=== PATIENT | female | born 1945 | race Caucasian/White ===

== ENCOUNTER 2018-07-09 08:17 | Outpatient (CLI) | payer MEDICARE | END 2018-07-09 08:18 | disposition home or self-care (01) | LOC: BICMAMMO 08:17 | PROVIDERS: ATTEND Family Medicine | DX: Z12.31 Encounter for screening mammogram for malignant neoplasm of breast (principal); M81.0 Age-related osteoporosis without current pathological fracture; M85.851 Other specified disorders of bone density and structure, right thigh | CPT/HCPCS: 77063; 77067; 77080 ==

== ENCOUNTER 2018-08-18 13:30 | Outpatient (CLI) | payer MEDICARE ==
--- NOTE | 2018-08-18 14:56 | RAD ---
CHEST PA AND LATERAL 2 VIEWS: Date: 08/18/18 HISTORY: 72-year-old female with dyspnea. COMPARISON: 11/26/16. FINDINGS: Dorsal column stimulator leads overlie the mid thoracic spine. Heart size is within normal limits. Jazmin ngs are clear. No pneumonia, edema, or pleural effusion. IMPRESSION: No acute intrathoracic disease. Stable from prior study. POS: OFF
== END 2018-08-18 13:31 | disposition home or self-care (01) ==
LOC: RAD 13:30
PROVIDERS: ATTEND Internal Medicine
DX: R06.00 Dyspnea, unspecified (principal)
CPT/HCPCS: 71046

== ENCOUNTER 2018-10-07 13:23 | Outpatient (CLI) | payer MEDICARE | END 2018-10-07 13:24 | disposition home or self-care (01) | LOC: CP 13:23 | PROVIDERS: ATTEND Internal Medicine | DX: J44.9 Chronic obstructive pulmonary disease, unspecified (principal); G47.33 Obstructive sleep apnea (adult) (pediatric) | CPT/HCPCS: 94060; 94727; 94729 ==

== ENCOUNTER 2019-03-01 14:14 | Emergency (ER) | payer MEDICARE ==
[2019-03-01 15:56] LABS: #Eosinphils 0.1 thou/uL (0.0-0.7); #Lymphocytes 2.1 thou/uL (1.20-3.40); #Monocytes 0.4 thou/uL (0.11-0.59); #Neutrophils 4.4 thou/uL (1.40-6.50); %Basophils 0.6 % (0.0-1.0); %Eosinophils 1.6 % (0.0-10.0); %Lymphocytes 29.3 % (21.0-51.0); %Neutrophils 62.5 % (42.0-75.0); Hemoglobin 11.5 g/dL (12.0-16.0); Mean Corpuscular HGB CONC 33.6 g/dL (32.0-36.0); Mean Corpuscular Hemoglobin 31.8 pg (27.0-31.0); Mean Corpuscular Volume 94.8 fL (78.0-98.0); Mean Platelet Volume 8.9 fL (7.4-10.4); Platelet Count 229 thou/uL (130-400); RBC Distribution Width 11.6 % (11.5-14.5); Red Blood Cell (RBC) Count 3.61 mill/uL (4.20-5.40)
[2019-03-01 16:17] LABS: ALT (SGPT) 20 U/L (8-55); AST (SGOT) 22 U/L (5-34); Albumin 4.1 g/dL (3.4-4.8); Alkaline Phosphatase 148 U/L (40-150); Anion Gap 14 mmol/L (10-20); BUN (Urea Nitrogen) 7 mg/dL (9.8-20.1); Bilirubin, Total 0.6 mg/dL (0.2-1.2); CK (CPK) 68 U/L (29-168); Calc. Creatinine Clearance 0 mL/min (70-130); Calcium 10.1 mg/dL (7.8-10.44); Carbon Dioxide 25 mmol/L (23-31); Chloride 106 mmol/L (98-107); Estimated GFR-MDRD 76; Globulin 3.1 g/dL (2.4-3.5); Glucose 105 mg/dL (83-110); Lipase 26 U/L (8-78); Potassium 3.9 mmol/L (3.5-5.1); Protein, Total 7.2 g/dL (6.0-8.3); Sodium 141 mmol/L (136-145)
--- NOTE | 2019-03-01 17:47 | CT ---
CT of abdomen and pelvis: 03/01/2019 COMPARISON: None available HISTORY: Abdominal pain TECHNIQUE: Axial CT imaging through abdomen and pelvis with oral contrast and coronal reformatted vijaya ging FINDINGS: Lack of IV contrast limits assessment of the viscera, vascular structures, and for lymphade nopathy. Imaged lung bases unremarkable. No free intraperitoneal air or fluid. Cholecystectomy clips are noted. Liver, spleen, pancreas, adrenal glands, and kidneys demonstrate no acute findings. There is scattere d atherosclerotic calcification of the abdominal aorta. The uterus appears surgically absent. There is sigmoid diverticulosis. There is a focal area of sigmoid colonic wall thickening within the central aspect of the lower pelvis with pericolonic fat stranding, most consistent with acute sigmoid colonic diverticulitis. No associated abscess formation. No extraluminal gas or associated ob struction. There is a fat-containing umbilical hernia, the hernia sac measuring 5.7 cm craniocaudal dimension an d 6.1 cm transverse dimension. Appendix appears grossly unremarkable. Question prior Campbell fundoplication. Dorsal column stimulators are present, terminating over the mid thoracic spine. Lower lumbar spine fa cet hypertrophic change noted. No worrisome lytic or blastic bone lesions. IMPRESSION: Evidence of sigmoid diverticulitis. Follow-up direct visualization following treatment wesly cha.
[2019-03-01] MEDS ORDERED: metroNIDAZOLE 500 MG/100 ML BAG ONE (18:46)
[2019-03-01 20:06] LABS: Bilirubin Negative (Negative); Blood, Urine Negative (Negative); Clarity CLEAR (Clear); Glucose, Urine (Dipstick) Negative (Negative); Leukocyte Negative (Negative); Nitrite Negative (Negative); Protein, Urine (Dipstick) Negative (Neg-Trace); Specific Gravity, Urine 1.003 (1.002-1.036); Urobilinogen 0.2 mg/dL (0.2-1.0)
== END 2019-03-01 21:15 | disposition home or self-care (01) ==
LOC: ERS 14:14
DX: K57.32 Diverticulitis of large intestine without perforation or abscess without bleeding (principal); E78.5 Hyperlipidemia, unspecified; I10 Essential (primary) hypertension; J45.909 Unspecified asthma, uncomplicated; Z79.899 Other long term (current) drug therapy
CPT/HCPCS: 36415; 74176; 80053; 81003; 82550; 83605; 83690; 85025; 96365; 96367; J0690

== ENCOUNTER 2019-07-19 08:50 | Outpatient (CLI) | payer MEDICARE ==
--- NOTE | 2019-07-19 10:24 | MMO ---
Bilateral MAMMO Bilat Screen [facility]. CLINICAL HISTORY: Patient is 73 years old and is seen for screening. The patient has no family history of breast cancer. The patient has no personal history of cancer. VIEWS: The views performed were: bilateral craniocaudal with tomosynthesis and bilateral mediolateral oblique with tomosynthesis. FILMS COMPARED: The present examination has been compared to prior imaging studies performed at [facility] on 08/28/2015, 07/08/2017 and 07/09/2018, and at [facility] on 02/15/2015. MAMMOGRAM FINDINGS: There are scattered fibroglandular densities. There are benign appearing calcifications seen in both breasts. There are no suspicious masses, suspicious calcifications, or new areas of architectural distortion. IMPRESSION: THERE IS NO MAMMOGRAPHIC EVIDENCE OF MALIGNANCY. A ROUTINE FOLLOW-UP MAMMOGRAM IN 1 YEAR IS RECOMMENDED. THE RESULTS OF THIS EXAM WERE SENT TO THE PATIENT. ACR BI-RADS Category 2 - Benign finding MAMMOGRAPHY NOTE: 1. A negative mammogram report should not delay a biopsy if a dominant of clinically suspicious mass is present. 2. Approximately 10% to 15% of breast cancers are not detected by mammography. 3. Adenosis and dense breasts may obscure an underlying neoplasm. Reported by: TC ACOSTA MD Electonically Signed: [id number]
== END 2019-07-19 08:51 | disposition home or self-care (01) ==
LOC: BICMAMMO 08:50
PROVIDERS: ATTEND Family Medicine
DX: Z12.31 Encounter for screening mammogram for malignant neoplasm of breast (principal)
CPT/HCPCS: 77063; 77067

== ENCOUNTER 2019-12-23 15:14 | Emergency (ER) | payer MEDICARE ==
--- NOTE | 2019-12-23 16:12 | RAD ---
THREE VIEWS OF THE RIGHT WRIST: 12/23/19 COMPARISON: None. HISTORY: Right hand and wrist injury with pain. FINDINGS: Three views of the right wrist shows no evidence of fracture or dislocation surrounding the wrist. Th ere appears to be a fracture of the fifth metacarpal. Soft tissue swelling is seen along the dorsal a spect of the hand. No soft tissue swelling is seen surrounding the wrist. IMPRESSION: 1. No evidence of acute osseous abnormality of the wrist. 2. Fifth metacarpal fracture. POS: [facility]
[2019-12-23] MEDS ORDERED: Acetaminophen 500 MG TAB ONE (16:21)
--- NOTE | 2019-12-23 16:30 | RAD ---
RIGHT HAND: 12/23/19 Three views. HISTORY: Right hand injury. Carpals appear normally aligned and appear intact. Mild degenerative changes at the intercarpal and c arpometacarpal joints. Cystic changes seen in the proximal scaphoid. The metacarpals and phalanges appear intact. Mild DJD seen at the MCP and IP joints. Hypertrophic kemi nges seen along the distal cortex of the dorsal aspect of the fifth metacarpal involving the neck of the fifth metacarpal. This appears to represent hypertrophic change. A subtle fracture at this site i s not completely excluded. Recommend clinical correlation regarding pain in the region of the head of the fifth metacarpal. No other evidence of acute fracture. IMPRESSION: 1. Irregular density along the cortical margin of the neck of the fifth metacarpal dorsally is f elt to represent hypertrophic change. A subtle fracture is not excluded and recommend clinical correl ation. 2. Otherwise degenerative changes of the hand as noted above. POS: [facility]
== END 2019-12-23 16:23 | disposition home or self-care (01) ==
LOC: ERS 15:14
DX: S62.336A Displaced fracture of neck of fifth metacarpal bone, right hand, initial encounter for closed fracture (principal); E78.5 Hyperlipidemia, unspecified; I10 Essential (primary) hypertension; J45.909 Unspecified asthma, uncomplicated; Z79.899 Other long term (current) drug therapy; W18.30XA Fall on same level, unspecified, initial encounter

== ENCOUNTER 2020-07-21 08:00 | Outpatient (CLI) | payer MEDICARE ==
--- NOTE | 2020-07-21 08:35 | MMO ---
Bilateral MAMMO Bilat Screen [facility]. CLINICAL HISTORY: Patient is 74 years old and is seen for screening. The patient has no family history of breast cancer. The patient has no personal history of cancer. VIEWS: The views performed were: bilateral craniocaudal with tomosynthesis and bilateral mediolateral oblique with tomosynthesis. FILMS COMPARED: The present examination has been compared to prior imaging studies performed at [facility] on 08/28/2015, 07/08/2017, 07/09/2018 and 07/19/2019. This study has been interpreted with the assistance of computer-aided detection. MAMMOGRAM FINDINGS: There are scattered fibroglandular densities. There are stable benign appearing calcifications seen in both breasts. There are also vascular calcifications. There are no suspicious masses, suspicious calcifications, or new areas of architectural distortion. IMPRESSION: THERE IS NO MAMMOGRAPHIC EVIDENCE OF MALIGNANCY. A ROUTINE FOLLOW-UP MAMMOGRAM IN 1 YEAR IS RECOMMENDED. THE RESULTS OF THIS EXAM WERE SENT TO THE PATIENT. ACR BI-RADS Category 2 - Benign finding MAMMOGRAPHY NOTE: 1. A negative mammogram report should not delay a biopsy if a dominant of clinically suspicious mass is present. 2. Approximately 10% to 15% of breast cancers are not detected by mammography. 3. Adenosis and dense breasts may obscure an underlying neoplasm. Reported by: SHERMAN DELGADO MD Electonically Signed: [id number]
--- NOTE | 2020-07-24 10:16 | BD ---
BONE DENSITOMETRY: Date: 07/24/2020 HISTORY: Postmenopausal screening. FINDINGS: BMD (g/cm2) Left Femoral Neck: 0.723 T-Score: -1.1 Total: 0.907 T-Score: -0.3 Right Femoral Neck 0.730 T-Score: -1.1 Total: 0.899 T-Score: -0.4 IMPRESSION: Bone mineral density of both femoral necks indicates osteopenia. 10 YEAR FRACTURE RISK: Major osteoporotic fracture: 9.5% Hip fracture: 1.5% POS: [facility]
== END 2020-07-21 08:01 | disposition home or self-care (01) ==
LOC: BICMAMMO 08:00
PROVIDERS: ATTEND Obstetrics & Gynecology
DX: Z12.31 Encounter for screening mammogram for malignant neoplasm of breast (principal)
CPT/HCPCS: 77063; 77067

== ENCOUNTER 2020-07-24 09:30 | Outpatient (CLI) | payer MEDICARE | END 2020-07-24 09:31 | disposition home or self-care (01) | LOC: BICMAMMO 09:30 | PROVIDERS: ATTEND Obstetrics & Gynecology | DX: Z13.820 Encounter for screening for osteoporosis (principal); M85.851 Other specified disorders of bone density and structure, right thigh; M85.852 Other specified disorders of bone density and structure, left thigh | CPT/HCPCS: 77080 ==

== ENCOUNTER 2021-10-17 14:23 | Outpatient (CLI) | payer MEDICARE | END 2021-10-17 14:24 | disposition home or self-care (01) | LOC: BICMAMMO 14:23 | PROVIDERS: ATTEND Obstetrics & Gynecology | DX: Z12.31 Encounter for screening mammogram for malignant neoplasm of breast (principal) | CPT/HCPCS: 77063; 77067 ==

== ENCOUNTER 2022-03-27 10:19 | Emergency (ER) | payer MEDICARE ==
[2022-03-27] MEDS ORDERED: Morphine 4 MG/ML VIAL ONE (11:49)
== END 2022-03-27 14:44 | disposition home or self-care (01) ==
LOC: ERS 10:19
DX: S52.615A Nondisplaced fracture of left ulna styloid process, initial encounter for closed fracture (principal); S52.502A Unspecified fracture of the lower end of left radius, initial encounter for closed fracture; M25.562 Pain in left knee; M25.572 Pain in left ankle and joints of left foot; I10 Essential (primary) hypertension; E78.5 Hyperlipidemia, unspecified; W18.30XA Fall on same level, unspecified, initial encounter; Y93.K1 Activity, walking an animal
CPT/HCPCS: 29125; 71045; 72170; 96372; J2270

== ENCOUNTER 2022-04-02 10:55 | Outpatient (CLI) | payer MEDICARE ==
[2022-04-03 00:19] LABS: SARS-CoV-2 PCR by NAA Not Detected (NotDetected)
== END 2022-04-02 10:56 | disposition home or self-care (01) ==
LOC: LABBT 10:55
PROVIDERS: ATTEND Orthopaedic Surgery
DX: Z01.818 Encounter for other preprocedural examination (principal); S52.502A Unspecified fracture of the lower end of left radius, initial encounter for closed fracture; Z20.822 Contact with and (suspected) exposure to COVID-19
CPT/HCPCS: 93005; U0003; U0005; 93010

== ENCOUNTER 2022-04-04 11:39 | Day surgery (SDC) | payer MEDICARE ==
[2022-04-03 12:21] VITALS: BMI 27.6
[2022-04-04] MEDS ORDERED: fentaNYL Citrate/PF 100 MCG/2 ML SYRINGE ONE (13:54)
[2022-04-04 14:26] LABS: Chloride 108 mmol/L (98-107)
[2022-04-04 14:27] LABS: Calcium 9.7 mg/dL (7.8-10.44); Glucose 88 mg/dL (83-110); Potassium 4.2 mmol/L (3.5-5.1); Sodium 140 mmol/L (136-145)
[2022-04-04 14:29] LABS: Anion Gap 16 mmol/L (10-20); Carbon Dioxide 20 mmol/L (23-31)
[2022-04-04 14:31] LABS: Calc. Creatinine Clearance 77 mL/min (70-130)
[2022-04-04 14:32] LABS: BUN (Urea Nitrogen) 9 mg/dL (9.8-20.1)
[2022-04-04] MEDS ORDERED: CEFAZOLIN 2 GM VIAL ONE (14:59)
[2022-04-04] MEDS ORDERED: Sodium Chloride 0.9% 100 ML ONE (14:59)
[2022-04-04] MEDS ORDERED: EPINEPHrine 1 MG/ML AMP ONE (15:54)
[2022-04-04] MEDS ORDERED: Bupivacaine PF 0.5% 30 ML VIAL ONE (15:54)
[2022-04-04] MEDS ORDERED: Promethazine HCl 25 MG/ML VIAL ONE (16:32)
[2022-04-04] MEDS ORDERED: HYDROcodone/Acetaminophen 5/325 mg Tablet ONE (17:17)
== END 2022-04-04 18:22 | disposition home or self-care (01) ==
LOC: SDC 11:39
PROVIDERS: ATTEND Orthopaedic Surgery
PROC: 0PSJ04Z Reposition Left Radius with Internal Fixation Device, Open Approach (ICD-10-PCS; principal; 2022-04-04)
DX: S52.532A Colles' fracture of left radius, initial encounter for closed fracture (principal); J44.9 Chronic obstructive pulmonary disease, unspecified; I10 Essential (primary) hypertension; K21.9 Gastro-esophageal reflux disease without esophagitis; M81.0 Age-related osteoporosis without current pathological fracture; Z79.899 Other long term (current) drug therapy; Z88.1 Allergy status to other antibiotic agents; Z88.2 Allergy status to sulfonamides; Z88.5 Allergy status to narcotic agent; Z88.8 Allergy status to other drugs, medicaments and biological substances; Z91.040 Latex allergy status; W19.XXXA Unspecified fall, initial encounter
CPT/HCPCS: 36415; 76000; 80048; C1713; C1776; J0171; J2550; J3490; S0020

== ENCOUNTER 2022-05-19 05:40 | Inpatient (IN) | payer MEDICARE ==
[2022-05-19] MEDS ORDERED: Ondansetron PF 4 MG/2 ML Vial ONE ×2 (06:16→08:45)
[2022-05-19] MEDS ORDERED: Morphine 4 MG/ML VIAL ONE ×2 (06:16→08:40)
[2022-05-19 06:34] LABS: #Lymphocytes 1.6 thou/uL (1.20-3.40); #Monocytes 0.7 thou/uL (0.11-0.59); #Neutrophils 11.2 thou/uL (1.40-6.50); %Basophils 0.1 % (0.0-1.0); %Eosinophils 0.1 % (0.0-10.0); %Lymphocytes 11.9 % (21.0-51.0); %Monocytes 4.8 % (0.0-10.0); %Neutrophils 82.9 % (42.0-75.0); Hemoglobin 13.7 g/dL (12.0-16.0); Mean Corpuscular Hemoglobin 33.2 pg (27.0-31.0); Platelet Count 207 thou/uL (130-400); RBC Distribution Width 11.7 % (11.5-14.5); Red Blood Cell (RBC) Count 4.14 mill/uL (4.20-5.40); White Blood Cell (WBC) Count 13.5 thou/uL (4.8-10.8)
[2022-05-19 07:00] LABS: ALT (SGPT) 44 U/L (8-55); AST (SGOT) 38 U/L (5-34); Albumin 4.8 g/dL (3.4-4.8); Alkaline Phosphatase 185 U/L (40-110); Anion Gap 22 mmol/L (10-20); BUN (Urea Nitrogen) 11 mg/dL (9.8-20.1); Bilirubin, Total 0.9 mg/dL (0.2-1.2); Calc. Creatinine Clearance 0 mL/min (70-130); Calcium 11.5 mg/dL (7.8-10.44); Carbon Dioxide 23 mmol/L (23-31); Chloride 97 mmol/L (98-107); Estimated GFR 57; Globulin 3.5 g/dL (2.4-3.5); Glucose 192 mg/dL (83-110); Lipase 43 U/L (8-78); Potassium 3.7 mmol/L (3.5-5.1); Protein, Total 8.3 g/dL (5.8-8.1); Sodium 138 mmol/L (136-145)
[2022-05-19] MEDS ORDERED: Piperacillin/Tazobactam 4.5 GM in Sodium Chloride 0.9% 100 ML IVPB SCH (08:15)
[2022-05-19 09:34] LABS: Lactic Acid 2.7 mmol/L (0.5-2.2)
[2022-05-19] MEDS ORDERED: Morphine 2 MG/ML VIAL SLOW IVP PRN ×2 (10:33→15:26)
[2022-05-19 10:43] VITALS: BMI 26.6
[2022-05-19] MEDS ORDERED: Non-Formulary Item 1 EACH (Fluticasone Propionate [Flovent Diskus] 50 MCG Blst.W.Dev) IH PRN (10:51)
[2022-05-19] MEDS ORDERED: Albuterol 200 PUFF (6.7GM INHALER) INH PRN ×2 (10:51→10:57)
[2022-05-19] MEDS ORDERED: Albuterol Sulfate 2.5 mg/3 ml Neb NEB PRN (11:07)
[2022-05-19] MEDS ORDERED: Dicyclomine 20 MG TAB PO SCH (15:00)
[2022-05-19] MEDS: Lactated Ringer's 1,000 ML IV SCH ×2 (15:24→20:43)
[2022-05-19] MEDS: Ondansetron PF 4 MG/2 ML Vial IVP PRN (18:25)
[2022-05-19] MEDS: Mometasone 100 MCG/PUFF (1 INHALER) INH SCH (19:35)
[2022-05-19] MEDS: Morphine 4 MG/ML VIAL SLOW IVP PRN (20:38)
[2022-05-19] MEDS ORDERED: Atorvastatin Calcium 40 MG TAB PO SCH (21:00)
[2022-05-19] MEDS ORDERED: Non-Formulary Item 1 EACH (Atorvastatin Calcium [Lipitor] 80 MG Tablet) PO SCH (21:00)
[2022-05-19] MEDS ORDERED: Pantoprazole 40 MG VIAL IVP SCH (23:45)
[2022-05-20] MEDS: Lactated Ringer's 1,000 ML IV SCH ×2 (04:34→16:13)
[2022-05-20] MEDS: Morphine 4 MG/ML VIAL SLOW IVP PRN (04:38)
[2022-05-20 05:44] LABS: #Eosinphils 0.1 thou/uL (0.0-0.7); #Lymphocytes 2.2 thou/uL (1.20-3.40); #Monocytes 0.8 thou/uL (0.11-0.59); #Neutrophils 6.5 thou/uL (1.40-6.50); %Basophils 0.3 % (0.0-1.0); %Eosinophils 1.1 % (0.0-10.0); %Lymphocytes 22.6 % (21.0-51.0); %Monocytes 8.6 % (0.0-10.0); %Neutrophils 67.5 % (42.0-75.0); Hemoglobin 11.1 g/dL (12.0-16.0); Mean Corpuscular HGB CONC 32.9 g/dL (32.0-36.0); Mean Corpuscular Hemoglobin 33.9 pg (27.0-31.0); Mean Platelet Volume 8.9 fL (7.4-10.4); Platelet Count 155 thou/uL (130-400); RBC Distribution Width 11.6 % (11.5-14.5); Red Blood Cell (RBC) Count 3.27 mill/uL (4.20-5.40); White Blood Cell (WBC) Count 9.6 thou/uL (4.8-10.8)
[2022-05-20 06:17] LABS: ALT (SGPT) 32 U/L (8-55); AST (SGOT) 36 U/L (5-34); Albumin 3.3 g/dL (3.4-4.8); Alkaline Phosphatase 125 U/L (40-110); Anion Gap 10 mmol/L (10-20); BUN (Urea Nitrogen) 11 mg/dL (9.8-20.1); Bilirubin, Total 0.6 mg/dL (0.2-1.2); Calc. Creatinine Clearance 65 mL/min (70-130); Calcium 8.9 mg/dL (7.8-10.44); Carbon Dioxide 28 mmol/L (23-31); Chloride 105 mmol/L (98-107); Estimated GFR 84; Globulin 2.3 g/dL (2.4-3.5); Glucose 103 mg/dL (83-110); Potassium 3.8 mmol/L (3.5-5.1); Protein, Total 5.6 g/dL (5.8-8.1); Sodium 139 mmol/L (136-145)
[2022-05-20] MEDS: Mometasone 100 MCG/PUFF (1 INHALER) INH SCH (07:16)
[2022-05-20] MEDS ORDERED: Acetaminophen 650 MG Suppository PR PRN (08:12)
[2022-05-20] MEDS: Pantoprazole 40 MG VIAL IVP SCH (08:59)
[2022-05-20] MEDS ORDERED: Non-Formulary Item 1 EACH (Omeprazole [Omeprazole] 40 MG Capsule.Dr) PO SCH (09:00)
[2022-05-20] MEDS ORDERED: Lisinopril 10 MG TAB PO SCH (09:00)
[2022-05-20] MEDS ORDERED: Pantoprazole 40 MG VIAL IVP SCH (09:00)
[2022-05-20] MEDS ORDERED: Furosemide 20 MG TAB PO SCH (09:00)
[2022-05-20] MEDS: Ondansetron PF 4 MG/2 ML Vial IVP PRN (09:06)
[2022-05-21] MEDS: Lactated Ringer's 1,000 ML IV SCH (01:56)
[2022-05-21 05:14] LABS: #Eosinphils 0.2 thou/uL (0.0-0.7); #Lymphocytes 1.7 thou/uL (1.20-3.40); #Monocytes 0.5 thou/uL (0.11-0.59); #Neutrophils 3.7 thou/uL (1.40-6.50); %Basophils 0.4 % (0.0-1.0); %Eosinophils 2.5 % (0.0-10.0); %Lymphocytes 27.7 % (21.0-51.0); %Monocytes 8.7 % (0.0-10.0); %Neutrophils 60.7 % (42.0-75.0); Hemoglobin 9.9 g/dL (12.0-16.0); Mean Corpuscular HGB CONC 32.5 g/dL (32.0-36.0); Mean Corpuscular Hemoglobin 33.4 pg (27.0-31.0); Mean Platelet Volume 8.8 fL (7.4-10.4); Platelet Count 133 thou/uL (130-400); RBC Distribution Width 11.2 % (11.5-14.5); Red Blood Cell (RBC) Count 2.96 mill/uL (4.20-5.40); White Blood Cell (WBC) Count 6.2 thou/uL (4.8-10.8)
[2022-05-21 05:29] LABS: Lactic Acid 0.6 mmol/L (0.5-2.2)
[2022-05-21 05:40] LABS: ALT (SGPT) 23 U/L (8-55); AST (SGOT) 28 U/L (5-34); Alkaline Phosphatase 105 U/L (40-110); Anion Gap 13 mmol/L (10-20); BUN (Urea Nitrogen) 9 mg/dL (9.8-20.1); Bilirubin, Total 0.5 mg/dL (0.2-1.2); Calc. Creatinine Clearance 72 mL/min (70-130); Calcium 8.7 mg/dL (7.8-10.44); Carbon Dioxide 26 mmol/L (23-31); Chloride 107 mmol/L (98-107); Estimated GFR 91; Globulin 2.2 g/dL (2.4-3.5); Glucose 89 mg/dL (83-110); Potassium 3.8 mmol/L (3.5-5.1); Protein, Total 5.2 g/dL (5.8-8.1); Sodium 142 mmol/L (136-145)
[2022-05-21] MEDS ORDERED: MD-Gastroview 120 ML BOT ONE (09:44)
[2022-05-21] MEDS: Fluticasone Propionate Nasal Spray 16 gm Bottle NASAL SCH (12:23)
[2022-05-21] MEDS: Pantoprazole 40 MG VIAL IVP SCH (12:25)
[2022-05-21] MEDS ORDERED: Acetaminophen 325 MG/10.15 ML UDCUP PO PRN (16:59)
[2022-05-22 07:56] LABS: Hemoglobin 9.9 g/dL (12.0-16.0); Mean Corpuscular HGB CONC 33.4 g/dL (32.0-36.0); Mean Corpuscular Hemoglobin 33.4 pg (27.0-31.0); Mean Platelet Volume 9.2 fL (7.4-10.4); Platelet Count 138 thou/uL (130-400); RBC Distribution Width 11.2 % (11.5-14.5); Red Blood Cell (RBC) Count 2.97 mill/uL (4.20-5.40); White Blood Cell (WBC) Count 6.4 thou/uL (4.8-10.8)
[2022-05-22 08:14] LABS: ALT (SGPT) 24 U/L (8-55); AST (SGOT) 30 U/L (5-34); Albumin 3.5 g/dL (3.4-4.8); Alkaline Phosphatase 111 U/L (40-110); Anion Gap 16 mmol/L (10-20); BUN (Urea Nitrogen) 11 mg/dL (9.8-20.1); Bilirubin, Total 0.5 mg/dL (0.2-1.2); Calc. Creatinine Clearance 73 mL/min (70-130); Calcium 9.1 mg/dL (7.8-10.44); Carbon Dioxide 24 mmol/L (23-31); Chloride 105 mmol/L (98-107); Estimated GFR 91; Globulin 2.5 g/dL (2.4-3.5); Glucose 75 mg/dL (83-110); Potassium 3.4 mmol/L (3.5-5.1); Sodium 142 mmol/L (136-145)
[2022-05-22] MEDS: Fluticasone Propionate Nasal Spray 16 gm Bottle NASAL SCH (08:28)
[2022-05-22] MEDS ORDERED: Furosemide 20 MG TAB PO SCH (09:00)
[2022-05-22] MEDS ORDERED: Atorvastatin Calcium 40 MG TAB PO SCH (09:00)
[2022-05-22] MEDS ORDERED: Lisinopril 10 MG TAB PO SCH (09:00)
[2022-05-22 17:07] VITALS: BP 146/79; TEMP 98.4
== END 2022-05-22 17:43 | disposition home or self-care (01) | DRG 389 ==
LOC: ERS 05:40 → SURG A 10:17
PROVIDERS: ADMIT Student in an Organized Health Care Education/Training Program; ATTEND Student in an Organized Health Care Education/Training Program
PROC: 0D9670Z Drainage of Stomach with Drainage Device, Via Natural or Artificial Opening (ICD-10-PCS; principal; 2022-05-19)
DX: K56.600 Partial intestinal obstruction, unspecified as to cause (principal); I13.0 Hypertensive heart and chronic kidney disease with heart failure and stage 1 through stage 4 chronic kidney disease, or unspecified chronic kidney disease; D63.1 Anemia in chronic kidney disease; I50.9 Heart failure, unspecified; K58.1 Irritable bowel syndrome with constipation; K21.9 Gastro-esophageal reflux disease without esophagitis; N18.1 Chronic kidney disease, stage 1; J44.9 Chronic obstructive pulmonary disease, unspecified; E78.5 Hyperlipidemia, unspecified; R73.03 Prediabetes; K57.30 Diverticulosis of large intestine without perforation or abscess without bleeding; E55.9 Vitamin D deficiency, unspecified; F43.10 Post-traumatic stress disorder, unspecified; G47.30 Sleep apnea, unspecified; M19.90 Unspecified osteoarthritis, unspecified site; F51.04 Psychophysiologic insomnia; G43.909 Migraine, unspecified, not intractable, without status migrainosus; Z90.49 Acquired absence of other specified parts of digestive tract; Z90.710 Acquired absence of both cervix and uterus; Z88.5 Allergy status to narcotic agent; Z88.2 Allergy status to sulfonamides; Z88.8 Allergy status to other drugs, medicaments and biological substances; Z88.1 Allergy status to other antibiotic agents; Z91.041 Radiographic dye allergy status; Z79.899 Other long term (current) drug therapy; Z87.891 Personal history of nicotine dependence
CPT/HCPCS: 36415; 74019; 74176; 74250; 80053; 82607; 82746; 83605; 83690; 85025; 85027; 87040; 93005; 96361; 96374; 96375; 96376; C9113; J2270; J2405; J2543; J3490; J7120; Q9963

== ENCOUNTER 2022-11-13 08:23 | Outpatient (CLI) | payer MEDICARE | END 2022-11-13 08:24 | disposition home or self-care (01) | LOC: BICMAMMO 08:23 | PROVIDERS: ATTEND Obstetrics & Gynecology | DX: Z12.31 Encounter for screening mammogram for malignant neoplasm of breast (principal) | CPT/HCPCS: 77063; 77067 ==

== ENCOUNTER 2023-12-04 09:46 | Outpatient (CLI) | payer MEDICARE | END 2023-12-04 09:47 | disposition home or self-care (01) | LOC: BICMAMMO 09:46 | PROVIDERS: ATTEND Student in an Organized Health Care Education/Training Program | DX: Z12.31 Encounter for screening mammogram for malignant neoplasm of breast (principal); Z13.820 Encounter for screening for osteoporosis; M85.851 Other specified disorders of bone density and structure, right thigh; M85.852 Other specified disorders of bone density and structure, left thigh; Z78.0 Asymptomatic menopausal state | CPT/HCPCS: 77063; 77067; 77080 ==